=== PATIENT | male | born 1985 | race American Indian/Alaskan Native ===

== ENCOUNTER 2017-04-13 12:02 | Emergency (ER) | payer OTHER, MEDICAID ==
[2017-04-13 12:27] VITALS: BP 130/73; PULSE 82; RESP 16; TEMP 98; O2SAT 100
[2017-04-13] MEDS ORDERED: Lidocaine 5% Patch TD STA (12:35)
--- NOTE | 2017-04-13 12:42 | ED PDOC ---
HPI: Back Time Seen by Provider: 04/13/17 12:30 Chief Complaint (Nursing): Back Pain Chief Complaint (Provider): Back Pain History Per: Patient History/Exam Limitations: no limitations Onset/Duration Of Symptoms: Days (1 day ago) Current Symptoms Are (Timing): Still Present Additional Complaint(s): 31 y/o male presents to the ED complaining of lower back pain, onset of 1 day ago. Patients states that he was playing basketball and once he stopped palying , he began to experience some back pain in the lumbar region. He reports of experiencing similar symptoms in the past but was never seen by a physician. Of note, he took Motrin yesterday coupled with limited stretching secondary to pain , with no relief. He denies any dysuria, urinary incontinence, abdominal pain, and fever. PCP: Bobby Scherer Past Medical History Reviewed: Historical Data, Nursing Documentation, Vital Signs Vital Signs: Last Vital Signs Temp 98.0 F 04/13/17 12:25 Pulse 82 04/13/17 12:25 Resp 16 04/13/17 12:25 BP 130/73 04/13/17 12:25 Pulse Ox 100 04/13/17 12:25 - Medical History PMH: No Chronic Diseases - Surgical History Surgical History: No Surg Hx - Family History Family History: States: Unknown Family Hx - Living Arrangements Living Arrangements: With Family - Social History Current smoker - smoking cessation education provided: No Ex-Smoker (has not smoked in the last 12 months): No Alcohol: None Drugs: Denies - Home Medications Home Medications: Ambulatory Orders Medication Instructions Recorded traMADol [Ultram] 50 mg PO QID PRN #20 tab 04/07/14 Lidocaine 5% [Lidoderm] 1 ea TD DAILY PRN #10 patch 04/13/17 Meloxicam [Mobic] 15 mg PO DAILY PRN #14 tab 04/13/17 Methocarbamol [Robaxin] 500 mg PO Q8 PRN #20 tablet 04/13/17 - Allergies Allergies/Adverse Reactions: Allergies Allergy/AdvReac Type Severity Reaction Status Date / Time No Known Allergies Allergy Verified 12/24/13 18:59 Review of Systems ROS Statement: Except As Marked, All Systems Reviewed And Found Negative Constitutional: Negative for: Fever Gastrointestinal: Negative for: Abdominal Pain Genitourinary Male: Negative for: Dysuria, Incontinence Musculoskeletal: Positive for: Back Pain (lower back, lumbar) Physical Exam - Reviewed Nursing Documentation Reviewed: Yes Vital Signs Reviewed: Yes - Physical Exam Appears: Positive for: In Acute Distress (mild painful distress) Skin: Negative for: Rash Gastrointestinal/Abdominal: Positive for: Normal Exam, Soft. Negative for: Tenderness Back: Positive for: Normal Inspection, Muscle Spasm (right sided muscle spasm in the right lumbar area). Negative for: L CVA Tenderness, R CVA Tenderness Neurologic/Psych: Positive for: Alert, Oriented, Gait (steady). Negative for: Motor/Sensory Deficits - ECG O2 Sat by Pulse Oximetry: 100 (RA) Pulse Ox Interpretation: Normal - Progress Re-evaluation Time: 13:32 (LS spine x-ray: no fx) Condition: Re-examined, Improving,but remains with symptoms Medical Decision Making Medical Decision Making: Time: --12:35 Impression: --31 y/o with low back pain Plan: --Valium 10mg PO --Toradol 30 mg IM --Lidocaine 1ea TD --Ls Spine AP/Lat X-ray Scribe Attestation: Documented by Benton Case acting as a scribe for JESIKA Carias. Disposition - Clinical Impression Clinical Impression: Low back pain - Patient ED Disposition Is Patient to be Admitted: No - Disposition Referrals: [facility] [Outside] [facility] [Outside] Disposition: Routine/Home Disposition Time: 13:32 Condition: IMPROVED Prescriptions: Lidocaine 5% [Lidoderm] 1 ea TD DAILY PRN #10 patch PRN Reason: pain Meloxicam [Mobic] 15 mg PO DAILY PRN #14 tab PRN Reason: pain Methocarbamol [Robaxin] 500 mg PO Q8 PRN #20 tablet PRN Reason: Muscle Spasm Instructions: Acute Low Back Pain (ED) Forms: [employer] (Thai), [facility] ED School/Work Excuse
--- NOTE | 2017-04-13 13:40 | RAD ---
PROCEDURE: Radiographs of the Lumbar Spine. HISTORY: pain COMPARISON: None available. FINDINGS: BONES: Alignment appears satisfactory. No listhesis. No acute displaced fracture identified. DISC SPACES: Unremarkable. OTHER FINDINGS: None. IMPRESSION: No acute displaced fracture or subluxation identified.
== END 2017-04-13 13:49 | disposition home or self-care (01) ==
LOC: H.ER 12:02
DX: M54.5 Low back pain (principal); X50.9XXA Other and unspecified overexertion or strenuous movements or postures, initial encounter; Y93.67 Activity, basketball; Z87.891 Personal history of nicotine dependence
CPT/HCPCS: 72100; 96372; 99282; J1885

== ENCOUNTER 2017-04-15 12:19 | Emergency (ER) | payer OTHER, MEDICAID ==
[2017-04-15 12:31] VITALS: BP 158/79; PULSE 68; RESP 16; TEMP 98.3; O2SAT 99
--- NOTE | 2017-04-15 13:03 | ED PDOC ---
HPI: Back Time Seen by Provider: 04/15/17 12:28 Chief Complaint (Nursing): Back Pain Chief Complaint (Provider): Back Pain History Per: Patient History/Exam Limitations: no limitations Onset/Duration Of Symptoms: Other (x 2 weeks) Current Symptoms Are (Timing): Still Present Additional History Per: Prior Records Additional Complaint(s): Babak is a 31 year old male who presents to the emergency department for back pain for 2 weeks. Patient states he was here on for the same complaint. Patient reports he started on muscle relaxer after X-Ray results were negative. Pain is worsen at this time. Lower back pain radiating down to left lower extremity. Denies bowel and bladder dysfunction. PMD: Bobby Scherer Past Medical History Reviewed: Historical Data, Nursing Documentation, Vital Signs Vital Signs: Last Vital Signs Temp 98.3 F 04/15/17 12:24 Pulse 68 04/15/17 12:24 Resp 16 04/15/17 12:24 BP 158/79 H 04/15/17 12:24 Pulse Ox 99 04/15/17 12:24 - Family History Family History: States: Unknown Family Hx - Home Medications Home Medications: Ambulatory Orders Medication Instructions Recorded traMADol [Ultram] 50 mg PO QID PRN #20 tab 04/07/14 Lidocaine 5% [Lidoderm] 1 ea TD DAILY PRN #10 patch 04/13/17 Meloxicam [Mobic] 15 mg PO DAILY PRN #14 tab 04/13/17 Methocarbamol [Robaxin] 500 mg PO Q8 PRN #20 tablet 04/13/17 Cyclobenzaprine [Cyclobenzaprine 10 mg PO TID #20 tab 04/15/17 HCl] Ibuprofen [Motrin] 600 mg PO Q6 #20 tab 04/15/17 - Allergies Allergies/Adverse Reactions: Allergies Allergy/AdvReac Type Severity Reaction Status Date / Time Iodinated Contrast- Oral and Allergy ANGIOEDEMA Verified 04/15/17 12:23 IV Dye Review of Systems ROS Statement: Except As Marked, All Systems Reviewed And Found Negative Gastrointestinal: Negative for: Other (bowel dysfunction) Genitourinary Male: Negative for: Other (bladder dysfunction) Musculoskeletal: Positive for: Back Pain Physical Exam - Reviewed Nursing Documentation Reviewed: Yes Vital Signs Reviewed: Yes - Physical Exam Extremity: Positive for: Other (Lumbosacral paralspinal tendenress, (+) straight leg raise on right noted) - ECG O2 Sat by Pulse Oximetry: 99 (RA) Pulse Ox Interpretation: Normal Medical Decision Making Medical Decision Making: Time: 12:50 Plan: - Morphine 2 mg IV - Toradol 30 mg IVP STAT Pt doing well on re-eval, ambulating with steady gait. Scribe Attestation: Documented by Gaurang Benites, acting as a scribe for LISA Alexander Provider Scribe Attestation: All medical record entries made by the Scribe were at my direction and personally dictated by me. I have reviewed the chart and agree that the record accurately reflects my personal performance of the history, physical exam, medical decision making, and the department course for this patient. I have also personally directed, reviewed, and agree with the discharge instructions and disposition. Disposition - Clinical Impression Clinical Impression: Back pain - Patient ED Disposition Is Patient to be Admitted: No - Disposition Disposition: Routine/Home Disposition Time: 14:46 Condition: STABLE Prescriptions: Cyclobenzaprine [Cyclobenzaprine HCl] 10 mg PO TID #20 tab Ibuprofen [Motrin] 600 mg PO Q6 #20 tab Instructions: Back Pain (ED) Forms: [employer] ([place]) - POA Present On Arrival: None
[2017-04-15] MEDS ORDERED: Oxycodone/Acetaminophen 5/325 mg Tab PO STA (13:46)
[2017-04-15] MEDS ORDERED: Oxycodone/Acetaminophen 5/325 mg Tab ONE (13:56)
== END 2017-04-15 14:51 | disposition home or self-care (01) ==
LOC: H.ER 12:19
DX: M54.9 Dorsalgia, unspecified (principal)
CPT/HCPCS: 96372; 99282; J1885; J2270

== ENCOUNTER 2018-07-25 22:03 | Emergency (ER) | payer MEDICAID, OTHER ==
[2018-07-25 22:26] VITALS: BMI 33.5
[2018-07-25 22:28] VITALS: BP 148/96; PULSE 74; RESP 18; TEMP 98.4; O2SAT 99
--- NOTE | 2018-07-25 23:12 | ED PDOC ---
Upper Extremity Pain/Injury Time Seen by Provider: 07/25/18 22:31 Chief Complaint (Nursing): Upper Extremity Problem/Injury History Per: Patient Additional Complaint(s): Pt. states this morning he woke up with atraumatic L elbow pain radiating down to his fingers. Pt. states he is L hand dominant. 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 Denies chest pain, SOB, trauma, fever, rash. Past Medical History Reviewed: Historical Data, Nursing Documentation, Vital Signs Vital Signs: Last Vital Signs Temp 98.4 F 07/25/18 22:26 Pulse 74 07/25/18 22:26 Resp 18 07/25/18 22:26 BP 148/96 H 07/25/18 22: Pulse Ox 99 07/25/18 22:26 - Surgical History Surgical History: No Surg Hx - Family History Family History: States: No Known Family Hx - Home Medications Home Medications: Ambulatory Orders Medication Instructions Recorded traMADol [Ultram] 50 mg PO QID PRN #20 tab 04/07/14 Lidocaine 5% [Lidoderm] 1 ea TD DAILY PRN #10 patch 04/13/17 Meloxicam [Mobic] 15 mg PO DAILY PRN #14 tab 04/13/17 Methocarbamol [Robaxin] 500 mg PO Q8 PRN #20 tablet 04/13/17 Cyclobenzaprine [Cyclobenzaprine 10 mg PO TID #20 tab 04/15/17 HCl] Ibuprofen [Motrin] 600 mg PO Q6 #20 tab 04/15/17 Naproxen [Naprosyn] 500 mg PO BID PRN #7 tab 07/25/18 - Allergies Allergies/Adverse Reactions: Allergies Allergy/AdvReac Type Severity Reaction Status Date / Time Iodinated Contrast- Oral and Allergy ANGIOEDEMA Verified 04/15/17 12:23 IV Dye Review of Systems ROS Statement: Except As Marked, All Systems Reviewed And Found Negative Physical Exam - Physical Exam Appears: Positive for: Well, Non-toxic, No Acute Distress Skin: Positive for: Normal Color, Warm. Negative for: Rash Eye Exam: Positive for: Normal appearance Pulses-Radial (L): 2+ Pulses-Radial (R): 2+ Extremity: Positive for: Other (FROM actively of L elbow; no tenderness, swelling, deformity, warmth, erythema, or break in skin integrity of L elbow; equal seedling puller strength b/l) Neurological/Psych: Positive for: Awake, Alert, Oriented (x3) - ECG O2 Sat by Pulse Oximetry: 99 - Radiology X-Ray: Interpreted by Me (L elbow x-ray) X-Ray Interpretation: No Acute Disease - Progress ED Course And Treament: Toradol 30mg IM, L elbow x-ray ordered. Disposition - Clinical Impression Clinical Impression: Elbow pain - Patient ED Disposition Is Patient to be Admitted: No - Disposition Referrals: Bishop Rowell MD [Staff Provider] - [facility] [place] [Outside] Disposition: Routine/Home Disposition Time: 23:15 Condition: STABLE Additional Instructions: FOLLOW UP WITH ORTHO FOR FURTHER EVALUATION RETURN TO ED IMMEDIATELY IF SYMPTOMS WORSEN ANDRÉS AMOS, thank you for letting us take care of you today. Your provider was Dave Mann MD and you were treated for LT ARM PAIN. The emergency medical care you received today was directed at your acute symptoms. If you were prescribed any medication, please fill it and take as directed. It may take several days for your symptoms to resolve. Return to the Emergency Department if your symptoms worsen, do not improve, or if you have any other problems. Please contact your doctor or call one of the physicians/clinics you have been referred to that are listed on the Patient Visit Information form that is included in your discharge packet. Bring any paperwork you were given at discharge with you along with any medications you are taking to your follow up visit. Our treatment cannot replace ongoing medical care by a primary care provider outside of the emergency department. Thank you for allowing the [facility] team to be part of your care today. If you had an X-Ray or CT scan: A Radiologist will review the ED reading if any change in treatment is needed we will contact you. If you had a blood, urine, or wound culture: It will take several days for the results, if any change in treatment is needed we will contact you. If you had an STI test: It will take 48 hours for the results. Please call after 1 week if you have not heard back. Prescriptions: Naproxen [Naprosyn] 500 mg PO BID PRN #7 tab PRN Reason: Pain Instructions: Joint Pain Forms: [employer] ([place]ian), [facility] ED School/Work Excuse
--- NOTE | 2018-07-26 08:51 | RAD ---
Date of service: 07/25/2018 PROCEDURE: Radiographs of the left elbow. HISTORY: pain COMPARISON: No prior. TECHNIQUE: 3 views obtained. FINDINGS: BONES: No acute fracture or destructive bony lesion identified. JOINTS: Normal. No osteoarthritis. SOFT TISSUES: Normal. JOINT EFFUSION: None. OTHER FINDINGS: None IMPRESSION: Unremarkable radiographs of the left elbow.
== END 2018-07-25 23:23 | disposition home or self-care (01) ==
LOC: H.ER 22:03
DX: M25.522 Pain in left elbow (principal); Z88.8 Allergy status to other drugs, medicaments and biological substances
CPT/HCPCS: 73080; 96372; 99283; J1885